=== PATIENT | male | born 1960 | race Caucasian/White ===

== ENCOUNTER 2024-05-14 06:22 | Inpatient (IN) | payer BC, SELFPAY ==
[2024-05-14] VITALS (12 sets, daily range): BP systolic 96–160; BP diastolic 50–74; BMI 30.4; BMI 29.1
[2024-05-14 04:05] LABS: % Basophils 0.7 % (0-2); % Eosinophils 0.1 % (0-6); % Immature Granulocytes 0.3 % (0-0.5); % Lymphocytes 6.9 % (20.5-51.1); % Monocytes 3.8 % (1.7-9.3); % Neutrophils 88.2 % (42.2-75.2); Absolute Basophils 0.1 10^3/uL (0-0.2); Absolute Lymphocytes 0.7 10^3/uL (1.2-3.4); Absolute Monocytes 0.4 10^3/uL (0.1-0.6); Absolute Neutrophils 9.1 10^3/uL (1.4-6.5); Hematocrit 42.3 % (39.0-52.0); Hemoglobin 14.7 g/dL (13.0-18.0); Mean Corp Hgb Conc. 34.8 g/dL (33.0-37.0); Mean Corpuscular Hgb 32.7 pg (27.0-31.0); Mean Corpuscular Volume 94.2 fL (80.0-94.0); Mean Platelet Volume 9.1 fL (7.4-10.4); Nucleated Red Blood Cells % 0 % (-); Platelet Count 233 10^3/uL (130-400); Red Blood Cell Count 4.49 10^6/uL (4.70-6.10); Red Cell Dist. Width 12.1 % (11.5-14.5); White Blood Cell Count 10.3 10^3/uL (4.8-10.8)
[2024-05-14 04:08] LABS: Urine Albumin 3+ (Neg - Trace); Urine Bilirubin Negative (Negative); Urine Character Cloudy (Clear); Urine Color Brown; Urine Glucose Negative (Negative); Urine Ketone 1+ (Negative); Urine Leukocyte 3+ (Negative); Urine Nitrite Negative (Negative); Urine Occult Blood 4+ (Negative); Urine Specific Gravity 1.025 (<1.030); Urine Urobilinogen Negative (Neg - 1+)
--- NOTE | 2024-05-14 04:19 | ED.GENMED ---
History of Present Illness
General
Chief Complaint: Flank Pain
Source: patient
Exam Limitations: none
Time Seen by Provider: 05/14/24 04:09
Nursing documentation reviewed up to this point in time: agreed with
History of Present Illness
History of Present Illness:
This is a 64-year-old gentleman with no significant past medical history, takes no medicines save for multivitamins who presents with somewhat abrupt onset of right flank pain associated with nausea and vomiting. Flank pain woke him from sleep
around midnight. No history of similar episodes in the past. No aggravating or relieving factors. He denies dysuria and urgency and or hematuria. No diarrhea nor constipation.
Past History
Past History
ED Past Medical History: None
ED Past Surgical History: None
Social History
Tobacco: Non-smoker
Alcohol: Occasional
Drug: None
Personal:
Living: with family
Employment: Employed
Family History
Family History: Other (Noncontributory)
Phy Exam
Physical Exam
Physical Exam:
GENERAL: 64-year-old gentleman appears his stated age, awake and alert, pleasant, appears in no acute distress.
EYE: anicteric
NECK: Supple, nontender, no meningismus, no significant adenopathy.
ENT: oral mucosa is moist.
CARDIAC: Regular rate and rhythm. no murmur.
LUNGS: Clear breath sounds bilaterally, no acute respiratory distress, no wheezes/rales/rhonchi
ABDOMEN: Soft, nondistended, without focal tenderness, no r/g, Mild right CVA tenderness with percussion. normoactive BS.
NEUROLOGICAL: Alert and oriented x3, no focal neuro deficits. Gait is reza and steady.
SKIN: Warm and dry, normal color, skin intact. No rash.
MUSCULOSKELETAL: No C/C/E. peripheral pulses are full and equal b/l. No palpable tenderness.
PSYCH: Normal and appropriate interaction.
Course
Orders/Labs/Results
Orders:
Orders
05/14/24 03:52
IV Insert/Care/Rem.- Treatment PRN
05/14/24 03:56
Complete Blood Count/With Diff Urgent
Comprehensive Metabolic Panel Urgent
Lipase Urgent
Urinalysis Reflex To Culture Urgent
Date Specimen was Collected: 05/14/24
Time Specimen was Collected: 03:52
Urine Microscopic Reflex Cult Urgent
Urine Culture Urgent
LINDSEY Source: U
Specimen Description:
Date Specimen was Collected: 05/14/24
Time Specimen was Collected: 03:52
05/14/24 04:18
CT Abd/pel Without Iv Or Oral Urgent
Comment:
Reason For Exam: acute R flank pain w N/V
0.9% Sodium Chloride 1000 ml [Nss] 1,000 ml IV BOLUS
Ketorolac [Toradol] 15 mg IV NOW STA
Ondansetron Injectable [Zofran] 4 mg IV NOW STA
05/14/24 05:40
CefTRIAXone [Rocephin] 1,000 mg IV NOW STA
Abnormal Lab Results
05/14/24
03:56
RBC 4.49 L 10^6/uL
(4.70-6.10)
MCV 94.2 H fL
(80.0-94.0)
MCH 32.7 H pg
(27.0-31.0)
Absolute Neuts (auto) 9.1 H 10^3/uL
(1.4-6.5)
Absolute Lymphs (auto) 0.7 L 10^3/uL
(1.2-3.4)
Neutrophils % 88.2 H %
(42.2-75.2)
Lymphocytes % 6.9 L %
(20.5-51.1)
Glucose 138 H mg/dl
(70-99)
Urine Ketones 1+ A
(Negative)
Ur Occult Blood Reflex 4+ A
(Negative)
Leukocyte Esterase Rfl 3+ A
(Negative)
Urine RBC >100 A /HPF
(0-2)
Urine WBC (Reflex) >100 A /HPF
(0-5)
Urine Bacteria (Reflex) Moderate A
(Negative)
Urine Albumin (Reflex) 3+ A
(Neg - Trace)
05/14/24 03:56
05/14/24 03:56
Vital Signs
Initial and Last Documented VS:
Initial Vital Signs
Temp Pulse Resp BP Pulse Ox
98.2 F 52 18 160/74 100
05/14/24 03:30 05/14/24 03:30 05/14/24 03:30 05/14/24 03:30 05/14/24 03:30
Last Documented Vital Signs
Temp Pulse Resp BP Pulse Ox
98.2 F 52 18 160/74 100
05/14/24 03:30 05/14/24 03:30 05/14/24 03:30 05/14/24 03:30 05/14/24 03:30
MDM/Problems Addressed
Differential Diagnosis Includes:
Concern for right ureteric stone, pyelonephritis, musculoskeletal back pain. Colitis, bowel obstruction are much less likely.
Labs are pending.
Will medicate for pain and nausea, initiate IV fluids and check CT abdomen pelvis.
*Radiology
Radiology exam reviewed: radiology read reviewed
*Pulse Oximetry
Patient hypoxic: no
*Critical Care Note
Total Time (30-74mins, 75-104mins- exclusive of procedures): Not Applicable
Update Note
Update Note:
5:45
Patient has been resting comfortably, near complete relief of pain. No further nausea.
CAT scan shows a 19 mm stone proximal left ureter with severe hydronephrosis. There is also note of a 1 mm stone distal right ureter with mild hydronephrosis.
Labs are unremarkable with normal white blood cell count. Normal creatinine of 1.2 but with bilateral ureteric stones with obstruction, concern for progressive renal failure due to obstruction.
Urinalysis is concerning for UTI with moderate bacteria, greater than 100 WBCs. It is reassuring that patient is afebrile and white blood cell count is normal but will initiate IV Rocephin for potential UTI.
Case discussed with urology, recommends admit to hospitalist service, continue antibiotic, n.p.o. and recommend avoiding Lovenox.
Hospitalist aware.
ED Attending Note
-
Portions of this chart may have been created with voice recognition software.� Occasional wrong word or��sound alike� substitutions may have occurred due to the inherent limitations of voice recognition software.
Discharge Plan
Departure
Patient Disposition: Admit
Date of Disposition: 05/14/24
Time of Disposition: 05:42
Admit to doctor: Radha
Presentation/result/management discussed w/ accepting MD/DO: Hospitalist
Condition: Fair
Discharge Problem:
Bilateral ureteric stones with hydroneph, Bacteriuria
Referrals:
NONE,* [Family Provider] -
Interventions
Interventions:
*Risk Screen - Suicide Last Done: 05/14/24 03:30
*General Assessment Last Done: 05/14/24 03:55
*Neglect/Abuse Screening Last Done: 05/14/24 03:30
*ED COVID-19 Vaccine History Last Done: 05/14/24 03:55
Discharge Date and Time
Print Language: PORTUGUESE
[2024-05-14] MEDS: NSS 1000 IV ×3 (04:25→21:42)
[2024-05-14] MEDS: TORADOL 15 MG IV (04:26)
[2024-05-14] MEDS: ZOFRAN 4 MG IV (04:27)
[2024-05-14 04:30] LABS: ALT (SGPT) 27 U/L (0-50); AST (SGOT) 30 U/L (17-59); Albumin 4.2 g/dl (3.5-5.0); Alkaline Phosphatase 53 U/L (38-126); Blood Urea Nitrogen 19 mg/dl (9-20); Calcium 9.5 mg/dl (8.4-10.2); Carbon Dioxide 22 mmol/L (22-30); Chloride 107 mmol/L (98-107); Estimated Creatinine Clearance 65 ml/min; Glucose 138 mg/dl (70-99); Lipase 150 U/L (23-300); Potassium 4.2 mmol/L (3.5-5.1); Sodium 139 mmol/L (135-145); Total Protein 6.8 g/dl (6.3-8.2); eGFR > 60.00
[2024-05-14 04:32] LABS: Urine Bacteria Moderate (Negative); Urine Calcium Oxalate Crystals Seen; Urine Red Blood Cell >100 /HPF (0-2); Urine White Cell >100 /HPF (0-5)
[2024-05-14] MEDS: ROCEPHIN 1000 MG IV (05:57)
--- NOTE | 2024-05-14 06:06 | HPS.HSE ---
Family Physician
-
Family Physician: * NONE
Chief Complaint
-
Flank pain.
History of Present Illness
This is a 62-year-old without known past medical history presenting to the emergency department with right-sided flank pain.
He reports sudden arousal from sleep with abrupt onset right-sided flank pain that she describes as a sharp and stabbing pain. He came in waves waxing and waning. He did notice some blood in the urine afterwards and decided to come to the
emergency department. He reports some rigors with the waves of pain. Reports some mild nausea. Denies any vomiting. This started around midnight. Denies any prior histories. He denies any recent episodes of hematuria, dysuria or urinary
frequency or urgency. He denies any diarrhea or constipation. Denies having any recent fevers or chills. No prior history of kidney stones. Denies any significant prior history.
Medical History
Past Medical History
Past Medical History: Reports None
Past Surgical History: Reports None
Social History
Tobacco: Former Smoker
Alcohol: Former
Drug: None
Family History
Family History: Not pertinent
Allergies / Home Medications
Allergies reflects when Allergies were last updated in [facility].
Home Medications with original date entered in [facility]
Allergy/Medication List:
Allergies
Allergy/AdvReac Type Severity Reaction Status Date / Time
Sulfa (Sulfonamide Allergy Unknown Verified 05/14/24 03:32
Antibiotics)
Home Medications
No Meds [No Current Medications] 05/14/24
Review of Systems
-
Constitutional: Reports No Symptoms
EENT: Reports No Symptoms
Respiratory: Reports No Symptoms
Cardiac: Reports No Symptoms
Abdomen/GI: Reports No Symptoms
: Reports Flank Pain
Musculoskeletal: Reports No Symptoms
Skin: Reports No Symptoms
Neurological: Reports No Symptoms
Endocrine: Reports No Symptoms
Hematologic/Lymphatic: Reports No Symptoms
Psych: Reports No Symptoms
Physical Exam
Vital Signs
Vital Signs
Temp Pulse Resp BP Pulse Ox
98.2 F 52 18 160/74 100
05/14/24 03:30 05/14/24 03:30 05/14/24 03:30 05/14/24 03:30 05/14/24 03:30
Physical Exam
General: Well Developed, Well Nourished, No Apparent Distress and Comfortable
HEENT: NormoCephalic, Anicteric, Moist mucous membranes and Atraumatic
Respiratory: Clear
Cardiac: S1/S2 and Regular Rhythm
Breast: Deferred by me
GI: Soft, Non Tender, Non Distended and Normal Bowel Sounds
Rectal: Deferred by Provider
Genito-urinary: Costovertebral angle tend
Musculoskeletal: No Clubbing, No Cyanosis and No Edema
Skin: Warm
Neuro: AO x 3 and Nonfocal/grossly intact
Hematologic/Lymphatic: No Lymphadenopathy
Psych: Calm
Laboratory Results
-
05/14/24 03:56
05/14/24 03:56
Laboratory Results
Total Bilirubin 1.0 mg/dl (0.2-1.3) 05/14/24 03:56
AST 30 U/L (17-59) 05/14/24 03:56
ALT 27 U/L (0-50) 05/14/24 03:56
Alkaline Phosphatase 53 U/L (38-126) 05/14/24 03:56
Lipase 150 U/L (23-300) 05/14/24 03:56
Data Reviewed
-
CT Scan: Report Reviewed by me
Lab Data: Labs Reviewed by me
Old Records: Reviewed
Impression/Plan
-
IMPRESSION:
Obstructive kidney stones. No past medical history,
PLAN:
Hydroureteronephrosis -Bilateral ureteral stones, a 19 mm calcified stone lodged in the proximal left ureter with severe left hydroureteronephrosis compatible with obstructive uropathy. Also a mild right hydroureter with hydronephrosis secondary to
vomiting/stone lodged at the distal right ureter. Afebrile. U/A is positive and patient with mild leukocytosis. HD stable
- admit to med/surg
- npo
- urine cultures sent
- blood cultures if febrile
- IV ceftriaxone for now
- due to impaction unlikely to pass stones but will give IV fluids and strain urine
- pain control and antiemetics
- no thinners
- urology aware and consulted
DVT PPX - SCDs
Code status - full code
--- NOTE | 2024-05-14 07:55 | W.PN.URO.CBU ---
Today's Communication / Plan
-
stain urine nupur f passes stone for op room today
Assessment / Plan
-
passable rt uretral stone with sxs but very lg impassable left prox stone willgive trial pasaage of rt if fails will consider basket rt side due to potential bilateral uretal obstruction and leave if possible left stent if passes rt stone
conceivable top discharge and t=retuern at later date for definitive left stone procedure
Diagnosis
-
Date of Service: May 14, 2024
-
Patient Diagnosis:rt 1 mm distal uretal stone with colic but incidental 20 mm left prox asx renal stone with hydro
Post Op Day:
Subjective
-
rt colic no fevr chills
Objective
-
Vital Signs
Temp Pulse Resp BP Pulse Ox
98.2 F 61 16 96/57 97
05/14/24 03:30 05/14/24 07:51 05/14/24 07:51 05/14/24 07:51 05/14/24 07:51
Laboratory Results
05/14/24 03:56
05/14/24 03:56
Review of Systems
-
: Frequency and Flank Pain
Physical Exam
-
General - well developed, well nourished, no acute distress
Chest - clear bilaterally
Abdomen - soft, non-tender, positive bowel sounds, no CVAT, no incisional pain or distention
Genitalia - normal
Rectal - normal
Skin - warm & dry with no rash
Neuro - AOx3, no motor deficits
Extremities - no clubbing, no cyanosis, no edema
Incision - clean, dry
Dressing - clean, dry, intact
Care Review
Data Reviewed
Discussed with: Hospitalist and Nursing
CT Scan: Image Pers Reviewed
--- NOTE | 2024-05-14 10:44 | W.PN.UPDATE ---
Update Note
Progress Note Update
Seen and examined independent of overnight physician. Nonbillable note. Patient states of intermittent left-sided flank pain. Denies any prior history of renal stones.
General: Well Developed, Well Nourished, No Apparent Distress and Comfortable
HEENT: NormoCephalic, Anicteric, Moist mucous membranes and Atraumatic
Respiratory: Clear
Cardiac: S1/S2 and Regular Rhythm
Breast: Deferred by me
GI: Soft, Non Tender, Non Distended and Normal Bowel Sounds
Rectal: Deferred by Provider
Genito-urinary: Costovertebral angle tend
Musculoskeletal: No Clubbing, No Cyanosis and No Edema
Skin: Warm
Neuro: AO x 3 and Nonfocal/grossly intact
Hematologic/Lymphatic: No Lymphadenopathy
Psych: Calm
IMPRESSION:
Obstructive kidney stones. No past medical history,
PLAN:
Hydroureteronephrosis -Bilateral ureteral stones, a 19 mm calcified stone lodged in the proximal left ureter with severe left hydroureteronephrosis compatible with obstructive uropathy. Also a mild right hydroureter with hydronephrosis secondary to
vomiting/stone lodged at the distal right ureter. Afebrile. U/A is positive and patient with mild leukocytosis. HD stable
- npo
- urine cultures sent
- blood cultures if febrile
- IV ceftriaxone for now
- due to impaction unlikely to pass stones but will give IV fluids and strain urine
- pain control and antiemetics
- no thinners
- urology aware and consulted And plan for OR later today.
DVT PPX - SCDs
Code status - full code
--- NOTE | 2024-05-14 15:58 | W.IMMPOSTOP ---
Surgical Immed Post Op Note
-
Primary Surgeon:
ta
Assisting Surgeon:
Pre-op Diagnosis:
bilateral ureteral stones
Post-op Diagnosis:
same
Procedure Performed:
cysto
right ureteroscopy and stent
left retrograde/ureteroscopy/laser lihto and stent
Anesthesia Type:
gen
Specimen / Cultures:
none
Estimated Blood Loss:
2cc
Complications:
none
Operative Findings:
right side scoped- no stone- tight ureter- stent placed
on left- massive stone- wire would not pass- ureteroscopy and partial laser litho performed- allowed stent placement on this side
admit for pain control/etc
will discuss return to OR for right stent extraction and second stage laser litho on left
[2024-05-14] MEDS: FLOMAX 0.4 MG PO (17:40)
[2024-05-14] MEDS: Pyridium 100 MG PO (17:40)
--- NOTE | 2024-05-14 18:18 | PTCARENOTE ---
Patient received from PACU at 16:30. AAOx3,ambulated to rest room, 2 bloody urines.
[2024-05-15] MEDS: Pyridium 100 MG PO ×2 (00:01→08:22)
[2024-05-15 03:30] VITALS: BP 117/67
[2024-05-15] MEDS: ROCEPHIN 1000 MG IV (05:44)
[2024-05-15] MEDS: STERILE WATER FOR INJECTION 10 ML IV (05:44)
[2024-05-15] MEDS: NSS 1000 IV (06:40)
[2024-05-15 07:35] VITALS: BP 114/60
[2024-05-15 07:50] LABS: Hematocrit 39.6 % (39.0-52.0); Hemoglobin 13.3 g/dL (13.0-18.0); Mean Corp Hgb Conc. 33.6 g/dL (33.0-37.0); Mean Corpuscular Hgb 32.7 pg (27.0-31.0); Mean Corpuscular Volume 97.3 fL (80.0-94.0); Mean Platelet Volume 9.9 fL (7.4-10.4); Platelet Count 213 10^3/uL (130-400); Red Blood Cell Count 4.07 10^6/uL (4.70-6.10); Red Cell Dist. Width 12.5 % (11.5-14.5); White Blood Cell Count 9.4 10^3/uL (4.8-10.8)
[2024-05-15] MEDS: FLOMAX 0.4 MG PO (08:22)
[2024-05-15 08:41] LABS: Blood Urea Nitrogen 14 mg/dl (9-20); Calcium 8.6 mg/dl (8.4-10.2); Carbon Dioxide 22 mmol/L (22-30); Chloride 108 mmol/L (98-107); Estimated Creatinine Clearance 77 ml/min; Glucose 113 mg/dl (70-99); Potassium 4.1 mmol/L (3.5-5.1); Sodium 140 mmol/L (135-145); eGFR > 60.00
--- NOTE | 2024-05-15 09:45 | CM ---
Reviewed the chart notes and spoke with the patient at the bedside. The patient resides alone in a mobile home with one step to enter. The patient reports no DME/VN/SNF in the past. The patient confirmed his pharmacy of choice is the [facility] [address] [place]. CM continues to be available to patient/family and is monitoring medical plan for needs at discharge.
Plan: Discharge to home when medically stable. No needs anticipated at this time.
--- NOTE | 2024-05-15 11:17 | W.PN.HOSP.TC ---
Today's Communication/Plan
-
stop IVF
Await urology recs
po abx on dc short course
Assessment / Plan
Assessment / Plan
Hydroureteronephrosis -Bilateral ureteral stones, a 19 mm calcified stone lodged in the proximal left ureter with severe left hydroureteronephrosis compatible with obstructive uropathy. Also a mild right hydroureter with hydronephrosis secondary to
vomiting/stone lodged at the distal right ureter.
- urine cultures-no GROWTH
- remainsa febrile
- IV ceftriaxone for now -switch to po on dc
- pain control and antiemetics
- no thinners
- Status post left retrograde pyelogram, ureteroscopy and laser lithotripsy and bilateral ureteral stent placement.
- On pyridium per urology
DVT PPX - SCDs
Code status - full code
Anticipated Discharge: Today
Subjective/Interval History
-
Date of Service: May 15, 2024
mild urinary urgency and blood in urine
afebrile
Objective Data
-
Labs:
Laboratory Results
05/15/24
07:02
WBC 9.4
Hgb 13.3
Hct 39.6
Plt Count 213
Sodium 140
Potassium 4.1
Chloride 108 H
Carbon Dioxide 22
BUN 14
Creatinine 0.9
Glucose 113 H
Calcium 8.6
Vital Signs:
Vital Signs
Temp Pulse Resp BP Pulse Ox
98.4 F 64 14 114/60 97
05/15/24 07:35 05/15/24 07:35 05/15/24 07:35 05/15/24 07:35 05/15/24 08:15
I&O
05/14/24 05/15/24 05/16/24
06:59 06:59 06:59
Intake Total 480 / 480
Output Total 550 / 550
Balance -70 / -70
Physical Exam
-
General: Well Developed and No Apparent Distress
HEENT: Normocephalic, Atraumatic and Moist Mucous Membranes
Respiratory: Clear to Auscultation
Cardiac: S1/S2; Negative Murmur, Rub or Gallop
GI: Soft, Nontender, Nondistended and Normal Bowel Sounds; Negative Organomegaly
Rectal: Deferred by Provider
Musculoskeletal: No Clubbing, No Cyanosis and No Edema
Skin: Negative Rash
Neuro: Awake, Alert, Oriented, AO x 3, No Motor Deficits and Nonfocal/Grossly Intact
Psych: Calm
[2024-05-15 11:46] VITALS: BP 108/54
--- NOTE | 2024-05-15 12:11 | W.DCSUMMARY ---
Discharge Summary
Discharge Data
Date of Admission: 05/14/24
Date of Discharge: 05/15/24
-
Pending Results: No
Hospital Course
65-year-old male with no past medical history is presenting with complaints of flank pain. Patient underwent CT abdomen pelvis. Found to have Bilateral ureteral stones, a 19 mm calcified stone lodged in the proximal left ureter with severe left
hydroureteronephrosis compatible with obstructive uropathy. Also a mild right hydroureter with hydronephrosis secondary to vomiting/stone lodged at the distal right ureter. Patient was eval by urology. Patient was started on IV antibiotic. Status
post left retrograde pyelogram, ureteroscopy and laser lithotripsy and bilateral ureteral stent placement. Patient urine culture with no growth transitioned to p.o. cefdinir for additional 5 days per urology. Patient states of childhood
allergy to sulfa antibiotics. Patient tolerated Flomax. Pyridium as needed for bladder spasms. Patient will need to follow-up outpatient with urology. Patient was counseled return to ER if with severe fever, chills, lightheadedness or dizziness.
Patient verbalized understanding.
Discharge Plan
-
Patient Disposition: Home (Routine Discharge)
Discharge Diagnosis/Procedures: Hydroureteronephrosis Status post left retrograde pyelogram, cystoscopy, ureteroscopy and bilateral stent placement and left sided laser lithotripsy
Condition: Fair
Diet: As tolerated
Activity: With assistance and As tolerated
Driving Restrictions: As prior to admission
Referrals:
Brodie Cedeño MD [Active] - (call [facility] urology [address]EDE[address]O [phone] to schedule next phase urology treatment expect frequency urgency and blood in urine until treatment completed)
NONE,* [Family Provider] - in less than 1 week
Prescriptions:
New
tamsulosin 0.4 mg Capsule
0.4 mg PO DAILY 30 Days Qty: 30 0RF
cefdinir 300 mg capsule
300 mg PO Q12H Qty: 10 0RF
phenazopyridine 100 mg Tablet
100 mg PO Q8 PRN (Reason: bladder spasms) Qty: 5 0RF
Discharge Orders:
Discharge Patient (As Directed); Ordered 05/15/24
Ordered By: Denys Whiteside
Discharge Date and Time
Print Language: [place]
--- NOTE | 2024-05-15 13:22 | W.PN.URO.CBU ---
Today's Communication / Plan
-
ok for d/c
Assessment / Plan
-
has bilateral stents but rt stone gonwe but needs secod procedure left siode will call office to schedule
Diagnosis
-
Date of Service: May 15, 2024
-
Patient Diagnosis:
Post Op Day:
Patient Diagnosis:rt 1 mm distal uretal stone with colic but incidental 20 mm left prox asx renal stone with hydro
Post Op Day1:
Subjective
-
asx except stents
Objective
-
Vital Signs
Temp Pulse Resp BP Pulse Ox
98.3 F 60 20 108/54 98
05/15/24 11:46 05/15/24 11:46 05/15/24 11:46 05/15/24 11:46 05/15/24 11:46
Intake and Output
05/14/24 05/15/24 05/16/24
06:59 06:59 06:59
Intake Total 480 / 480 500 / 500
Output Total 550 / 550
Balance -70 / -70 500 / 500
Intake:
Oral fluids 480 / 480
IV fluids (Total) 500 / 500
Output:
Urine, Voided 550 / 550
Laboratory Results
05/15/24 07:02
05/15/24 07:02
Review of Systems
-
: Frequency
Physical Exam
-
General - well developed, well nourished, no acute distress
Chest - clear bilaterally
Abdomen - soft, non-tender, positive bowel sounds, no CVAT, no incisional pain or distention
Genitalia - normal
Rectal - normal
Skin - warm & dry with no rash
Neuro - AOx3, no motor deficits
Extremities - no clubbing, no cyanosis, no edema
Incision - clean, dry
Dressing - clean, dry, intact
Care Review
Data Reviewed
Discussed with: Nursing
CT Scan: Image Pers Reviewed
== END 2024-05-15 14:57 | disposition home or self-care (01) | DRG 661 ==
LOC: 2 SOUTH 06:22
PROVIDERS: Radiology Vascular & Interventional Radiology; Specialist; ADMITTING PHYSICIAN Internal Medicine; ATTENDING PHYSICIAN Hospitalist; EMERGENCY PHYSICIAN Emergency Medicine
PROC: 0T788DZ Dilation of Bilateral Ureters with Intraluminal Device, Via Natural or Artificial Opening Endoscopic (ICD-10-PCS; 2024-05-14)
PROC: BT141ZZ Fluoroscopy of Kidneys, Ureters and Bladder using Low Osmolar Contrast (ICD-10-PCS; 2024-05-14)
PROC: 0TF78ZZ Fragmentation in Left Ureter, Via Natural or Artificial Opening Endoscopic (ICD-10-PCS; 2024-05-14)
DX: N13.2 Hydronephrosis with renal and ureteral calculous obstruction (principal); D72.829 Elevated white blood cell count, unspecified; R60.9 Edema, unspecified; R39.15 Urgency of urination; R31.9 Hematuria, unspecified; Z60.2 Problems related to living alone; Z87.891 Personal history of nicotine dependence; Z88.2 Allergy status to sulfonamides
CPT/HCPCS: 74176; 74420; 76000; 80048; 80053; 81003; 81015; 83690; 85025; 85027; 87086; 96361; 96374; 96375; 99285; A4300; C1758; C2617

== ENCOUNTER 2024-06-04 06:23 | Day surgery (SDC) | payer BC, SELFPAY ==
[2024-06-04] VITALS (8 sets, daily range): BP systolic 113–130; BP diastolic 66–79; BMI 28.5
[2024-06-04] MEDS: NORMOSOL-R/PLASMALYTE-A 1000 IV (10:27)
[2024-06-04 11:11] LABS: Urine Albumin 4+ (Neg - Trace); Urine Bilirubin Negative (Negative); Urine Character Cloudy (Clear); Urine Color Red; Urine Glucose Negative (Negative); Urine Ketone Negative (Negative); Urine Leukocyte 3+ (Negative); Urine Nitrite Negative (Negative); Urine Occult Blood 4+ (Negative); Urine Urobilinogen Negative (Neg - 1+)
[2024-06-04 11:23] LABS: Urine Red Blood Cell >100 /HPF (0-2)
[2024-06-04] MEDS: Pyridium 200 MG PO (13:21)
== END 2024-06-04 14:53 | disposition home or self-care (01) ==
LOC: SDS 06:23
PROVIDERS: ATTENDING PHYSICIAN Specialist
DX: N13.2 Hydronephrosis with renal and ureteral calculous obstruction (principal)
CPT/HCPCS: 52356; 74018; 76000; 81003; 81015; 82365; 87086; 93005; A4300; C1894; C2617